=== PATIENT | male | born 1995 | race Caucasian/White ===

== ENCOUNTER 2017-07-01 15:05 | Emergency (ER) | payer BC ==
[2017-07-01 15:13] VITALS: RESP 18; TEMP 98.2; O2SAT 99
--- NOTE | 2017-07-01 15:48 | CPEKG ---
Heart Rate: 64 RR Interval: 938 P-R Interval: 140 QRSD Interval: 86 QT Interval: 364 QTC Interval: 376 P [place]: 46 QRS [place]: 71 T Wave [place]: 28 EKG Severity - NORMAL ECG - EKG Impression: SINUS RHYTHM Electronically Signed By: Shanell Chapman 01-Jul-2017 22:29:58
--- NOTE | 2017-07-01 16:28 | EDPHY ---
H & P Time Seen by Provider: 07/01/17 16:04 HPI/ROS: CHIEF COMPLAINT: Syncope, low blood pressure HISTORY OF PRESENT ILLNESS: The patient is a 22-year-old male who presents emergency department after having a syncopal episode. The patient states that he had need in all day. He was taking his blood pressure with a friend's blood pressure machine. On his initial measurement is blood pressure was 101/55. He felt like it was not measuring well through his sweatshirt so he removed it and repeated his blood pressure. During the measurement he fainted. He denies previous fainting episodes. No chest pain or shortness of breath. Patient awoke from draining and felt very hungry. He ate and he is now feeling much better. He states he did strike his head on a chair when he fainted. He has minimal discomfort posteriorly. He has no visual change. No neck pain. No weakness or numbness. No focal neurologic deficits. No nausea or vomiting. REVIEW OF SYSTEMS: My complete review of systems is negative except as mentioned in the HPI. Past Medical/Surgical History: Negative Past surgical history: Negative Social history: Patient denies drugs, alcohol or smoking Family history: No cardiac disease. No sudden . Smoking Status: Never smoked Physical Exam: Vitals noted. 110/60, 69, 18, 99% on room air, 36.8 GENERAL: Well-appearing, in no acute distress, alert. HEENT: Eyes normal to inspection, normal pharynx, no signs of dehydration. No hematoma or visible signs of head trauma. NECK: [No thyromegaly, no lymphadenopathy, supple. Nexus criteria negative. RESPIRATORY: Clear to auscultation bilaterally, no rales, rhonchi or wheezing. CVS: Regular rate and rhythm, no rubs, murmurs, or gallops. ABDOMEN: Soft, nontender, nondistended, no organomegaly. BACK: Normal to inspection, no CVA tenderness. SKIN: Normal color, no rash, warm, dry. No pallor. EXTREMITIES: No pedal edema, no calf tenderness, no Homans sign or cords, no joint swelling. NEURO/PSYCH: Higher functions: Alert and Oriented x3. Normal speech and cognition. Normal mood and affect. Cranial nerves: Normal as tested. Cerebellar: Normal as tested. Good finger to nose, good [id number], normal gait. Peripheral exam: Normal motor exam. Normal sensation. Normal reflexes. Constitutional: Initial Vital Signs Temperature (C) 36.8 C 07/01/17 15:10 Heart Rate 69 07/01/17 15:10 Respiratory Rate 18 07/01/17 15:10 Blood Pressure 110/60 07/01/17 15:10 O2 Sat (%) 99 07/01/17 15:10 O2 Delivery Mode Room Air Allergies/Adverse Reactions: No Known Allergies Allergy (Unverified 07/01/17 16:17) Medical Decision Making ED Course/Re-evaluation: In the emergency department I discussed possible etiologies with the patient. I answered all his questions. At this time I do not feel he needs a head CT for his fall. I explained this to the patient. A CBC and EKG were ordered. EKG shows normal sinus rhythm, normal rate, normal axis, normal intervals. There are no ST or T-wave abnormalities. EKG is normal as interpreted by me. CBC: Normal I discussed the results with the patient. I answered all his questions. Prior to discharge I re-examine the patient. He had no focal neurologic deficits. His neuro exam was normal. He is given warnings prior to leaving. He will return with worsening symptoms. He was given follow-up with work [facility]. Differential Diagnosis: My differential includes but is not limited to subarachnoid hemorrhage, subdural hematoma, epidural hematoma, spinal injury, CVA, dissection, aneurysm, dysrhythmia, dehydration, vasovagal episode - Data Points Laboratory Results: Laboratory Results 07/01/17 16:30 07/01/17 16:30 WBC 9.05 10^3/uL 10^3/uL (3.80-9.50) RBC 5.00 10^6/uL 10^6/uL (4.40-6.38) Hgb 15.3 g/dL g/dL (13.7-17.5) Hct 42.5 % % (40.0-51.0) MCV 85.0 fL fL (81.5-99.8) MCH 30.6 pg pg (27.9-34.1) MCHC 36.0 g/dL g/dL (32.4-36.7) RDW 13.0 % % (11.5-15.2) Plt Count 178 10^3/uL 10^3/uL (150-400) MPV 9.7 fL fL (8.7-11.7) Neut % (Auto) 65.5 % % (39.3-74.2) Lymph % (Auto) 25.1 % % (15.0-45.0) [place] % (Auto) 7.0 % % (4.5-13.0) Eos % (Auto) 1.9 % % (0.6-7.6) Baso % (Auto) 0.3 % % (0.3-1.7) Nucleat RBC Rel Count 0.0 % % (0.0-0.2) Absolute Neuts (auto) 5.93 10^3/uL 10^3/uL (1.70-6.50) Absolute Lymphs (auto) 2.27 10^3/uL 10^3/uL (1.00-3.00) Absolute Monos (auto) 0.63 10^3/uL 10^3/uL (0.30-0.80) Absolute Eos (auto) 0.17 10^3/uL 10^3/uL (0.03-0.40) Absolute Basos (auto) 0.03 10^3/uL 10^3/uL (0.02-0.10) Absolute Nucleated RBC 0.00 10^3/uL 10^3/uL (0-0.01) Immature Gran % 0.2 % % (0.0-1.1) Immature Gran # 0.02 10^3/uL 10^3/uL (0.00-0.10) Departure - Departure Disposition: Home, Routine, Self-Care Clinical Impression: Syncope Qualifiers: Syncope type: unspecified Qualified Code(s): R55 - Syncope and collapse Condition: Good Instructions: Syncope (ED) Additional Instructions: If you feel lightheaded or dizzy need to sit down immediately to avoid falling. Return to the emergency department with worsening symptoms or concerns. This may include increased headache, weakness, numbness, chest pain, shortness of breath, palpitations. Referrals: [facility],. [Clinic] - 2-3 days, call for appt.
[2017-07-01 16:36] LABS: PLATELET COUNT 178 10^3/uL (150-400)
[2017-07-01 17:15] VITALS: BP 115/43; PULSE 66
== END 2017-07-01 17:30 | disposition home or self-care (01) ==
DX: R55 Syncope and collapse (principal)